=== PATIENT | female | born 1985 | race Caucasian/White ===

== ENCOUNTER 2016-09-20 19:52 | Emergency (ER) | payer MEDICAID ==
[2016-09-20 21:32] LABS: BASOPHILS 0.3 % (0.0-2.0); EOSINOPHILS 0.4 % (0-7); HEMATOCRIT 43.1 % (36.0-48.0); HEMOGLOBIN 14.3 g/dL (12-16); IMMATURE GRANULOCYTES 0.2 % (0-5); LYMPHOCYTES 9.5 % (15-50); MCH 32.3 pg (26.0-34.0); MCHC 33.2 g/dL (31.0-37.0); MCV 97.3 fL (80.0-100.0); MEAN PLATELET VOLUME 10.8 fL (7.4-10.4); MONOCYTES 8.4 % (2-11); NEUTROPHILS 81.2 % (40-80); PLATELET COUNT 219 10x3/uL (130-400); RBC 4.43 10x6/uL (4.00-5.40); RDW 13.3 % (11.5-14.5); WBC 12.8 10x3/uL (4.8-10.8)
[2016-09-20 21:44] LABS: ALBUMIN 4.3 g/dL (3.4-5.0); ALKALINE PHOSPHATASE 103 U/L (46-116); ALT (SGPT) 23 U/L (10-68); BILIRUBIN - TOTAL 0.21 mg/dL (0.2-1.3); CALC OSMOLALITY 279 mosm/kg (275-300); CALCIUM 9.1 mg/dL (8.5-10.1); CARBON DIOXIDE 21.5 mmol/L (21.0-32.0); CHLORIDE - SERUM 102 mmol/L (98-107); CREATININE - SERUM 0.9 mg/dL (0.6-1.3); GLUCOSE 114 mg/dL (74-106); POTASSIUM - SERUM 4.2 mmol/L (3.5-5.1); PROTEIN - SERUM 7.8 g/dL (6.4-8.2); SODIUM 139 mmol/L (136-145); UREA NITROGEN 16 mg/dL (7-18); eGFR NON AFRICAN AMERICAN 78 mL/min (90-120)
[2016-09-20 22:00] LABS: APPEARANCE CLEAR (CLEAR); BILIRUBIN NEGATIVE (NEGATIVE); COLOR YELLOW (YELLOW); GLUCOSE NEGATIVE (NEGATIVE); KETONE NEGATIVE (NEGATIVE); LEUKOCYTE ESTERASE NEGATIVE (NEGATIVE); NITRITE NEGATIVE (NEGATIVE); PROTEIN NEGATIVE (NEGATIVE); UROBILINOGEN NORMAL (NORMAL)
[2016-09-20 22:08] LABS: UDS - AMPHET NEGATIVE QUAL (NEGATIVE); UDS - BARB NEGATIVE QUAL (NEGATIVE); UDS - BENZO NEGATIVE QUAL (NEGATIVE); UDS - COCAINE NEGATIVE QUAL (NEGATIVE); UDS - METH NEGATIVE QUAL (NEGATIVE); UDS - OPIATE NEGATIVE QUAL (NEGATIVE); UDS - PCP NEGATIVE QUAL (NEGATIVE); UDS - THC NEGATIVE QUAL (NEGATIVE)
[2016-09-20 22:29] LABS: HCG SERUM NEGATIVE (NEGATIVE)
== END 2016-09-21 00:20 | disposition home or self-care (01) ==
LOC: D.ER 19:52
PROVIDERS: Emergency Medicine
DX: F13.239 Sedative, hypnotic or anxiolytic dependence with withdrawal, unspecified (principal); F41.9 Anxiety disorder, unspecified; G47.00 Insomnia, unspecified

== ENCOUNTER 2016-12-10 16:40 | Emergency (ER) | payer MEDICAID | END 2016-12-10 19:20 | disposition home or self-care (01) | LOC: D.ER 16:40 | DX: S62.632A Displaced fracture of distal phalanx of right middle finger, initial encounter for closed fracture (principal); W23.0XXA Caught, crushed, jammed, or pinched between moving objects, initial encounter ==

== ENCOUNTER 2017-03-04 19:05 | Emergency (ER) | payer MEDICAID ==
[2017-03-04 19:31] LABS: BASOPHILS 0.3 % (0-2); EOSINOPHILS 1.1 % (0-7); HEMATOCRIT 41.7 % (36.0-48.0); HEMOGLOBIN 14.1 g/dL (12-16); IMMATURE GRANULOCYTES 0.1 % (0-5); LYMPHOCYTES 32.3 % (15-50); MCH 32.7 pg (26.0-34.0); MCHC 33.8 g/dL (31.0-37.0); MCV 96.8 fL (80.0-100.0); MEAN PLATELET VOLUME 10.5 fL (7.4-10.4); MONOCYTES 10.4 % (2-11); NEUTROPHILS 55.8 % (40-80); PLATELET COUNT 211 10x3/uL (130-400); RBC 4.31 10x6/uL (4.00-5.40); RDW 12.8 % (11.5-14.5); WBC 7.1 10x3/uL (4.8-10.8)
[2017-03-04 19:33] LABS: APPEARANCE HAZY (CLEAR); COLOR YELLOW (YELLOW)
[2017-03-04 19:34] LABS: BILIRUBIN NEGATIVE (NEGATIVE); GLUCOSE NEGATIVE (NEGATIVE); KETONE NEGATIVE (NEGATIVE); LEUKOCYTE ESTERASE TRACE (NEGATIVE); NITRITE NEGATIVE (NEGATIVE); PROTEIN NEGATIVE (NEGATIVE); UROBILINOGEN NORMAL (NORMAL)
[2017-03-04 19:41] LABS: AMORPHOUS SEDIMENT >1+ /lpf (NONE SEEN); BACTERIA MODERATE /hpf (NONE SEEN); EPITHELIAL CELLS 0-5 /hpf (0-5); GRANULAR CAST 0-5 /lpf (NONE SEEN); RED CELLS - URINE OCC /hpf (0-5); WHITE CELLS - URINE 0-5 /hpf (0-5)
[2017-03-04 19:58] LABS: HCG SERUM NEGATIVE (NEGATIVE)
== END 2017-03-04 21:52 | disposition home or self-care (01) ==
LOC: D.ER 19:05
PROVIDERS: Emergency Medicine
DX: S30.1XXA Contusion of abdominal wall, initial encounter (principal); W54.8XXA Other contact with dog, initial encounter; Y93.89 Activity, other specified; Y92.019 Unspecified place in single-family (private) house as the place of occurrence of the external cause; N93.9 Abnormal uterine and vaginal bleeding, unspecified

== ENCOUNTER 2019-02-20 17:27 | Emergency (ER) | payer MEDICAID ==
[~2019-02-20] VITALS: Ht 165.1 cm; Wt 58.0 kg
[2019-02-20 17:32] VITALS: Ht 165.1 cm; Wt 58.0 kg
[2019-02-20] MEDS ORDERED: PRENAVITE1 TAB PO (17:35)
[2019-02-20] MEDS ORDERED: KLONOPIN1 MG PO (17:35)
[2019-02-20 18:28] LABS: APPEARANCE CLEAR (CLEAR); BILIRUBIN NEGATIVE (NEGATIVE); COLOR YELLOW (YELLOW); GLUCOSE NEGATIVE (NEGATIVE); KETONE NEGATIVE (NEGATIVE); NITRITE NEGATIVE (NEGATIVE); PROTEIN NEGATIVE (NEGATIVE); SPECIFIC GRAVITY 1.025 (1.005-1.020); UROBILINOGEN NORMAL (NORMAL)
[2019-02-20 18:32] LABS: BASOPHILS 0.1 % (0-2); EOSINOPHILS 0.7 % (0-7); HEMATOCRIT 38.3 % (36.0-48.0); HEMOGLOBIN 13.6 g/dL (12-16); IMMATURE GRANULOCYTES 0.1 % (0-5); LYMPHOCYTES 25.5 % (15-50); MCH 33.1 pg (26.0-34.0); MCHC 35.5 g/dL (31.0-37.0); MCV 93.2 fL (80.0-100.0); MEAN PLATELET VOLUME 9.9 fL (7.4-10.4); MONOCYTES 9.8 % (2-11); NEUTROPHILS 63.8 % (40-80); RBC 4.11 10x6/uL (4.00-5.40); RDW 13.3 % (11.5-14.5); WBC 7.4 10x3/uL (4.8-10.8)
[2019-02-20 18:53] LABS: PLATELET COUNT 164 10x3/uL (130-400)
[2019-02-20 18:54] LABS: ALBUMIN 3.5 g/dL (3.4-5.0); ALKALINE PHOSPHATASE 55 U/L (46-116); ALT (SGPT) 13 U/L (10-68); BILIRUBIN - TOTAL 0.68 mg/dL (0.2-1.3); CALC OSMOLALITY 277 mosm/kg (275-300); CALCIUM 8.5 mg/dL (8.5-10.1); CARBON DIOXIDE 24.8 mmol/L (21.0-32.0); CHLORIDE - SERUM 104 mmol/L (98-107); CREATININE - SERUM 0.6 mg/dL (0.6-1.3); GLUCOSE 78 mg/dL (74-106); POTASSIUM - SERUM 3.8 mmol/L (3.5-5.1); PROTEIN - SERUM 6.7 g/dL (6.4-8.2); SODIUM 140 mmol/L (136-145); UREA NITROGEN 13 mg/dL (7-18); eGFR NON AFRICAN AMERICAN > 90 mL/min (90-120)
[2019-02-20 19:19] LABS: HCG - QUANTITATIVE (MATERNAL) 64250 mIU/mL
[2019-02-20 20:36] VITALS: BP 110/72
== END 2019-02-20 20:36 | disposition home or self-care (01) ==
LOC: D.ER 17:27
PROVIDERS: Family Medicine
DX: O20.0 Threatened abortion (principal); R10.2 Pelvic and perineal pain; O26.851 Spotting complicating pregnancy, first trimester; Z3A.12 12 weeks gestation of pregnancy

== ENCOUNTER 2019-02-23 19:39 | Emergency (ER) | payer MEDICAID ==
[~2019-02-23] VITALS: Ht 165.1 cm; Wt 57.7 kg
[~2019-02-23 19:39] MED LIST: KLONOPIN1 MG PO; PRENAVITE1 TAB PO
[2019-02-23 19:52] VITALS: Ht 165.1 cm; Wt 57.7 kg
[2019-02-23 21:04] LABS: BASOPHILS 0.2 % (0-2); EOSINOPHILS 0.6 % (0-7); HEMATOCRIT 36.7 % (36.0-48.0); IMMATURE GRANULOCYTES 0.1 % (0-5); LYMPHOCYTES 25.4 % (15-50); MCH 32.9 pg (26.0-34.0); MCHC 35.4 g/dL (31.0-37.0); MCV 92.9 fL (80.0-100.0); MONOCYTES 7.7 % (2-11); PLATELET COUNT 175 10x3/uL (130-400); RBC 3.95 10x6/uL (4.00-5.40); RDW 13.3 % (11.5-14.5); WBC 8.1 10x3/uL (4.8-10.8)
[2019-02-23 21:06] LABS: APPEARANCE CLEAR (CLEAR); COLOR YELLOW (YELLOW); NITRITE NEGATIVE (NEGATIVE)
[2019-02-23 21:07] LABS: BILIRUBIN NEGATIVE (NEGATIVE); GLUCOSE NEGATIVE (NEGATIVE); KETONE NEGATIVE (NEGATIVE); PROTEIN NEGATIVE (NEGATIVE); UROBILINOGEN NORMAL (NORMAL)
[2019-02-23 21:38] LABS: ALBUMIN 3.7 g/dL (3.4-5.0); ALKALINE PHOSPHATASE 54 U/L (46-116); ALT (SGPT) 15 U/L (10-68); BILIRUBIN - TOTAL 0.22 mg/dL (0.2-1.3); CALC OSMOLALITY 276 mosm/kg (275-300); CALCIUM 8.8 mg/dL (8.5-10.1); CARBON DIOXIDE 24.9 mmol/L (21.0-32.0); CHLORIDE - SERUM 104 mmol/L (98-107); CREATININE - SERUM 0.5 mg/dL (0.6-1.3); GLUCOSE 82 mg/dL (74-106); POTASSIUM - SERUM 3.8 mmol/L (3.5-5.1); PROTEIN - SERUM 6.9 g/dL (6.4-8.2); SODIUM 140 mmol/L (136-145); UREA NITROGEN 10 mg/dL (7-18); eGFR NON AFRICAN AMERICAN > 90 mL/min (90-120)
[2019-02-23 21:59] LABS: HCG - QUANTITATIVE (MATERNAL) 59625 mIU/mL
[2019-02-23] MEDS ORDERED: PHENERGAN25 M1 PO (22:19)
[2019-02-23 22:33] VITALS: BP 126/78
== END 2019-02-23 22:36 | disposition home or self-care (01) ==
LOC: D.ER 19:39
PROVIDERS: Emergency Medicine
DX: O26.891 Other specified pregnancy related conditions, first trimester (principal); Z3A.12 12 weeks gestation of pregnancy; S30.1XXA Contusion of abdominal wall, initial encounter; V43.52XA Car driver injured in collision with other type car in traffic accident, initial encounter; Y93.89 Activity, other specified; Y92.410 Unspecified street and highway as the place of occurrence of the external cause

== ENCOUNTER 2019-08-27 08:39 | Inpatient (IN) | payer MEDICAID ==
[~2019-08-27] VITALS: Ht 165.1 cm; Wt 78.9 kg
[~2019-08-27 08:39] MED LIST changes: +PHENERGAN25 M1 PO
[2019-08-27 09:23] LABS: UDS - AMPHET NEGATIVE QUAL (NEGATIVE); UDS - BARB NEGATIVE QUAL (NEGATIVE); UDS - BENZO POSITIVE QUAL (NEGATIVE); UDS - COCAINE NEGATIVE QUAL (NEGATIVE); UDS - OPIATE NEGATIVE QUAL (NEGATIVE); UDS - PCP NEGATIVE QUAL (NEGATIVE); UDS - THC NEGATIVE QUAL (NEGATIVE)
[2019-08-27 09:43] LABS: BILIRUBIN NEGATIVE (NEGATIVE); GLUCOSE NEGATIVE (NEGATIVE); KETONE NEGATIVE (NEGATIVE); NITRITE NEGATIVE (NEGATIVE); SPECIFIC GRAVITY 1.015 (1.005-1.020)
[2019-08-27 09:45] LABS: WHITE CELLS - URINE RARE /hpf (NEGATIVE)
[2019-08-27 09:46] LABS: BACTERIA FEW /hpf (NEGATIVE); EPITHELIAL CELLS OCC /hpf (0-5); RED CELLS - URINE OCC /hpf (0-5)
[2019-08-27] MEDS ORDERED: VALTREX500 MG PO (10:44)
[2019-08-27 10:45] VITALS: BP 118/70; Ht 165.1 cm; Wt 78.9 kg
[2019-08-27 11:09] LABS: HEMATOCRIT 35.9 % (36.0-48.0); HEMOGLOBIN 11.9 g/dL (12-16); MCH 30.7 pg (26.0-34.0); MCHC 33.1 g/dL (31.0-37.0); MCV 92.8 fL (80.0-100.0); RBC 3.87 10x6/uL (4.00-5.40); RDW 13.2 % (11.5-14.5)
[2019-08-28] VITALS: BP 118/69
[2019-08-28 04:33] VITALS: BP 103/68
[2019-08-28 07:51] LABS: BASOPHILS 0.2 % (0-2); EOSINOPHILS 0.7 % (0-7); HEMATOCRIT 31.9 % (36.0-48.0); HEMOGLOBIN 10.5 g/dL (12-16); IMMATURE GRANULOCYTES 0.2 % (0-5); MCH 30.9 pg (26.0-34.0); MCHC 32.9 g/dL (31.0-37.0); MCV 93.8 fL (80.0-100.0); MONOCYTES 10.2 % (2-11); NEUTROPHILS 68.7 % (40-80); PLATELET COUNT 165 10x3/uL (130-400); RDW 13.2 % (11.5-14.5)
[2019-08-28] MEDS ORDERED: HYDROCODON-ACE1 EAC7 PO (19:22)
[2019-08-28] MEDS ORDERED: IBUPROFEN600 MG PO (19:22)
--- NOTE | 2019-08-29 09:40 | MORECARE ---
CASE MANAGEMENT DISCHARGE SUMMARY PATIENT: NIMCO OH UNIT: [id number] ADM DATE: 08/27/19 AGE: 33 : 87 SEX: F ROOM/BED: D.1257 AUTHOR: SOPHIE CASPER PHYSICIAN: REFERRING PHYSICIAN: PRASHANT OLIVERA MD DATE OF SERVICE: 08/29/19 Discharge Plan Patient Name: NIMCO OH Facility: [facility]:[place] : 1985 Planned Disposition: Home Anticipated Discharge Date: 08/28/19 Discharge Date: 08/28/2019 Expected LOS: 1 Initial Reviewer: [email or web address] Initial Review Date: 08/27/2019 Generated: 08/29/19 10:39 am Patient Name: NIMCO OH Page [id number] at 0940 All edits/amendments must be made on the electronic document DICTATION DATE: 08/29/19938 HEATING UNIT INSTALLER: ISSA 08/29/19938 RPT#: [id number] DC DATE:08/28/19 STATUS: DIS IN [facility] [address] [place] [address] END OF REPORT
[2019-08-29 10:45] LABS: RAPID PLASMA REAGIN Non Reactive (Non Reactive)
== END 2019-08-28 20:23 | disposition home or self-care (01) | DRG 806 ==
LOC: D.LDO 08:39 → D.LD 10:23
PROVIDERS: ADMIT Obstetrics & Gynecology; ATTEND Obstetrics & Gynecology
PROC: 10E0XZZ Delivery of Products of Conception, External Approach (ICD-10-PCS; principal; 2019-08-27)
PROC: 0HQ9XZZ Repair Perineum Skin, External Approach (ICD-10-PCS; 2019-08-27)
DX: O99.344 Other mental disorders complicating childbirth (principal); O71.4 Obstetric high vaginal laceration alone; Z37.0 Single live birth; F41.8 Other specified anxiety disorders; Z3A.39 39 weeks gestation of pregnancy

== ENCOUNTER 2020-03-05 10:38 | Emergency (ER) | payer MEDICAID ==
[~2020-03-05] VITALS: Ht 165.1 cm; Wt 63.6 kg
[~2020-03-05 10:38] MED LIST changes: +HYDROCODON-ACE1 EAC7 PO; +IBUPROFEN600 MG PO; +VALTREX500 MG PO
[2020-03-05 11:05] VITALS: Ht 165.1 cm; Wt 63.6 kg
[2020-03-05] MEDS ORDERED: IBUPROFEN800 MG PO (11:23)
[2020-03-05 12:16] VITALS: BP 126/65
== END 2020-03-05 12:17 | disposition home or self-care (01) ==
LOC: D.ER 10:38
DX: M25.619 Stiffness of unspecified shoulder, not elsewhere classified (principal); V49.9XXA Car occupant (driver) (passenger) injured in unspecified traffic accident, initial encounter; F41.9 Anxiety disorder, unspecified

== ENCOUNTER 2020-12-21 19:31 | Emergency (ER) | payer MEDICAID ==
[~2020-12-21] VITALS: Ht 165.1 cm; Wt 63.6 kg
[~2020-12-21 19:31] MED LIST changes: +AMBIEN10 MG PO; +IBUPROFEN800 MG PO
[2020-12-21 19:40] VITALS: BP 142/79; Ht 165.1 cm; Wt 63.6 kg
[2020-12-21 20:25] LABS: HCG URINE POSITIVE (NEGATIVE)
[2020-12-21 20:25] LABS: BASOPHILS 0.5 % (0-2); EOSINOPHILS 0.5 % (0-7); HEMATOCRIT 45.2 % (36.0-48.0); HEMOGLOBIN 15.3 g/dL (12-16); MCH 31.5 pg (26.0-34.0); MCHC 33.8 g/dL (31.0-37.0); MCV 93.4 fL (80.0-100.0); MEAN PLATELET VOLUME 8.5 fL (7.4-10.4); MONOCYTES 7.5 % (2-11); NEUTROPHILS 80.5 % (40-80); RBC 4.84 10x6/uL (4.00-5.40); RDW 13.3 % (11.5-14.5); WBC 11.4 10x3/uL (4.8-10.8)
[2020-12-21 20:26] LABS: BILIRUBIN NEGATIVE (NEGATIVE); KETONE NEGATIVE mg/dL (< 1+); NITRITE NEGATIVE (NEGATIVE); UROBILINOGEN NORMAL mg/dL (< 2)
[2020-12-21 20:29] LABS: PLATELET COUNT 279 10x3/uL (130-400)
[2020-12-21 20:37] LABS: CALC OSMOLALITY 268 mosm/kg (275-300); CALCIUM 8.9 mg/dL (8.5-10.1); CARBON DIOXIDE 24.7 mmol/L (21.0-32.0); CHLORIDE - SERUM 100 mmol/L (98-107); CREATININE - SERUM 0.7 mg/dL (0.6-1.3); GLUCOSE 122 mg/dL (74-106); POTASSIUM - SERUM 3.8 mmol/L (3.5-5.1); SODIUM 134 mmol/L (136-145); UREA NITROGEN 12 mg/dL (7-18); eGFR NON AFRICAN AMERICAN > 90 mL/min (90-120)
[2020-12-21 21:05] LABS: ALKALINE PHOSPHATASE 78 U/L (30-120); ALT (SGPT) 18 U/L (10-68); BILIRUBIN - TOTAL 0.48 mg/dL (0.2-1.3); HCG - QUANTITATIVE (MATERNAL) 114950 mIU/mL; PROTEIN - SERUM 8.2 g/dL (6.4-8.2)
== END 2020-12-22 03:06 | disposition left against medical advice (07) ==
LOC: D.ER 19:31
PROVIDERS: Family Medicine
DX: O26.899 Other specified pregnancy related conditions, unspecified trimester (principal); R11.2 Nausea with vomiting, unspecified